=== PATIENT | male | born 1975 | race African-American/Black ===

== ENCOUNTER 2018-02-16 18:01 | Emergency (ER) | payer BC, SELFPAY ==
--- NOTE | 2018-02-16 20:22 | RAD ---
CHEST TWO VIEWS: 02/16/18 HISTORY: Cough and congestion. COMPARISON: 06/16/07 study. Heart size and mediastinum are within normal limits. The lungs appear clear of any infiltrative proce ss. No bony findings. IMPRESSION: No active intrathoracic disease. POS: [facility]
== END 2018-02-16 20:24 | disposition home or self-care (01) ==
LOC: ERS 18:01
DX: J06.9 Acute upper respiratory infection, unspecified (principal); F17.210 Nicotine dependence, cigarettes, uncomplicated; Z71.6 Tobacco abuse counseling
CPT/HCPCS: 71046; 99406

== ENCOUNTER 2018-08-31 15:46 | Emergency (ER) | payer BC, SELFPAY ==
--- NOTE | 2018-08-31 16:38 | RAD ---
Exam:3 views right ankle HISTORY: Fall. Pain. COMPARISON: None FINDINGS: Lateral soft tissue swelling. Nondisplaced distal fibular fracture. Additional fractures ar e not appreciated. IMPRESSION: Lateral soft tissue swelling with nondisplaced distal fibular fracture.
[2018-08-31] MEDS ORDERED: HYDROcodone/Acetaminophen 5/325 mg Tablet ONE (16:57)
== END 2018-08-31 17:57 | disposition home or self-care (01) ==
LOC: ERS 15:46
DX: S82.301A Unspecified fracture of lower end of right tibia, initial encounter for closed fracture (principal); F17.210 Nicotine dependence, cigarettes, uncomplicated; W18.42XA Slipping, tripping and stumbling without falling due to stepping into hole or opening, initial encounter

== ENCOUNTER 2023-05-10 16:00 | Outpatient (CLI) | payer OTHER | END 2023-05-10 16:01 | disposition home or self-care (01) | LOC: SLEEPLAB 16:00 | PROVIDERS: ATTEND Family Medicine | DX: G47.33 Obstructive sleep apnea (adult) (pediatric) (principal); G47.10 Hypersomnia, unspecified; E66.9 Obesity, unspecified; R06.83 Snoring; Z68.39 Body mass index [BMI] 39.0-39.9, adult | CPT/HCPCS: 95800 ==